=== PATIENT | female | born 1995 | race African-American/Black ===

== ENCOUNTER 2018-04-01 20:39 | Emergency (ER) | payer SELFPAY ==
[~2018-04-01] VITALS: Ht 162.6 cm; Wt 59.0 kg
[~2018-04-01 20:39] MED LIST: ORPH100T PO
[2018-04-01 20:55] VITALS: BP 120/80
[2018-04-01] MEDS ORDERED: ACYC800T PO (21:43)
--- NOTE | 2018-04-01 22:19 | PHYS DOC ---
Past Medical History Past Medical History: No Pertinent History Past Surgical History: Alcohol Use: None Drug Use: None Adult General Chief Complaint Chief Complaint: SEXUALLY TRANSMITTED DISEASE HPI HPI Patient is a 23 year old female presenting with a rash on her labia. Onset 2 days after recent sexual intercourse itchy mild pain no vag discharge no abdo pain no odor no fever Review of Systems Review of Systems Constitutional: Denies fever or chills [] Eyes: Denies change in visual acuity, redness, or eye pain [] Integument: Neurologic: Denies headache, focal weakness or sensory changes [] Endocrine: Denies polyuria or polydipsia [] All other systems were reviewed and found to be within normal limits, except as documented in this note. Allergies Allergies Allergies Coded Allergies Type Severity Reaction Last Updated Verified No Known Drug Allergies 03/05/18 No Physical Exam Physical Exam Constitutional: Well developed, well nourished, no acute distress, non-toxic appearance. [] HENT: Normocephalic, atraumatic, bilateral external ears normal, oropharynx moist, no oral exudates, nose normal. [] Eyes: PERRLA, EOMI, conjunctiva normal, no discharge. [] Neck: Normal range of motion, no tenderness, supple, no stridor. [] Pulmonary: Normal respiratory effort no increased work of breathing no obvious chest wall trauma Abdomen: , soft, no tenderness, no masses, no pulsatile masses. [] Skin: There are 2 small vesicular lesions on the left external labia no fluctuance no vaginal discharge is seen. Back: No tenderness, no CVA tenderness. [] Extremities: No tenderness, no cyanosis, no clubbing, ROM intact, no edema. [] Neurologic: Alert and oriented X 3, normal motor function, normal sensory function, no focal deficits noted. [] Psychologic: Affect normal, judgement normal, mood normal. [] Current Patient Data Vital Signs Vital Signs Date Time Temp Pulse Resp B/P (MAP) Pulse Ox O2 Delivery O2 Flow Rate FiO2 04/01/18 20:55 97.9 94 16 120/80 (93) 99 Room Air 97.9 Lab Values Laboratory Tests Test 04/01/18 21:37 POC Urine HCG, Qualitative Hcg negative (Negative) EKG EKG [] Radiology/Procedures Radiology/Procedures [] Course & Med Decision Making Course & Med Decision Making Pertinent Labs and Imaging studies reviewed. (See chart for details) []Probable herpes simplex early-onset area was swabbed patient knows we are starting presumptive treatment negative no other symptoms of cervicitis no vaginal discharge at this time. Dragon Disclaimer Dragon Disclaimer This electronic medical record was generated, in whole or in part, using a voice recognition dictation system. Departure Departure Impression: Primary Impression: Herpes simplex Disposition: 01 HOME, SELF-CARE Patient Instructions: Herpes Simplex Scripts Acyclovir (ACYCLOVIR) 800 Mg Tablet 1 TAB PO 5XDAY, #50 TAB Prov: CAMILLA JAMA MD 04/01/18 CAMILLA JAMA MD Apr 01, 2018 22:19
[2018-04-04 21:11] LABS: HERPES SIMPLEX TYPE 1 Negative (Negative); HERPES SIMPLEX TYPE 2 Negative (Negative)
== END 2018-04-01 22:41 | disposition home or self-care (01) ==
LOC: ER 20:39
DX: B00.1 Herpesviral vesicular dermatitis (principal)
CPT/HCPCS: 36415; 81025; 87529; 99283

== ENCOUNTER 2018-06-07 11:58 | Emergency (ER) | payer OTHER ==
[~2018-06-07] VITALS: Ht 162.6 cm; Wt 68.0 kg
[~2018-06-07 11:58] MED LIST changes: +ACYC800T PO
--- NOTE | 2018-06-07 14:11 | PHYS DOC ---
Past Medical History Past Medical History: No Pertinent History (CHEO HADDAD DO) Past Surgical History: (CHEO HADDAD DO) Alcohol Use: None Drug Use: None (CHEO HADDAD DO) Adult General Chief Complaint Chief Complaint: ABDOMINAL PAIN HPI HPI Patient is a 23 year old female who presented to ER today for evaluation of right lower abdominal pain. She described the pain as sharp, stabbing sensation. Patient denies any pelvic pain, no vaginal bleeding or discharge. She denies any fever. Patient had IUD placed 3-4 years ago. (HCEO HADDAD DO) Review of Systems Review of Systems Constitutional: Denies fever or chills [] Eyes: Denies change in visual acuity, redness, or eye pain [] HENT: Denies nasal congestion or sore throat [] Respiratory: Denies cough or shortness of breath [] Cardiovascular: No additional information not addressed in HPI [] GI: POSITIVE FOR abdominal pain, no nausea, vomiting, bloody stools or diarrhea [] : Denies dysuria or hematuria [] Musculoskeletal: Denies back pain or joint pain [] Integument: Denies rash or skin lesions [] Neurologic: Denies headache, focal weakness or sensory changes [] Endocrine: Denies polyuria or polydipsia [] All other systems were reviewed and found to be within normal limits, except as documented in this note. (CHEO HADDAD DO) Current Medications Current Medications Current Medications Medications (Trade) Dose Ordered Sig/Avinash Start Time Stop Time Status Last Admin Dose Admin Info (CONTRAST GIVEN -- Rx MONITORING) 1 each PRN DAILY PRN 06/07/18 15:15 06/09/18 15:14 Iohexol (Omnipaque 240 Mg/ml) 50 ml 1X ONCE 06/07/18 15:00 06/07/18 15:01 DC 06/07/18 15:00 50 ML Iohexol (Omnipaque 300 Mg/ml) 75 ml 1X ONCE 06/07/18 15:00 06/07/18 15:01 DC 06/07/18 15:00 75 ML Morphine Sulfate (Morphine Sulfate) 2 mg 1X ONCE 06/07/18 17:00 06/07/18 17:02 DC 06/07/18 17:25 2 MG (CAMILLA JAMA MD) Allergies Allergies Allergies Coded Allergies Type Severity Reaction Last Updated Verified No Known Drug Allergies 03/05/18 No (CAMILLA JAMA MD) Physical Exam Physical Exam Constitutional: Well developed, well nourished, no acute distress, non-toxic appearance. [] HENT: Normocephalic, atraumatic, bilateral external ears normal, oropharynx moist, no oral exudates, nose normal. [] Eyes: PERRLA, EOMI, conjunctiva normal, no discharge. [] Neck: Normal range of motion, no tenderness, supple, no stridor. [] Cardiovascular:Heart rate regular rhythm, no murmur [] Lungs & Thorax: Bilateral breath sounds clear to auscultation [] Abdomen: Bowel sounds normal, soft, RLQ tenderness TO PALPATION, no masses, no pulsatile masses. [] Skin: Warm, dry, no erythema, no rash. [] Back: No tenderness, no CVA tenderness. [] Extremities: No tenderness, no cyanosis, no clubbing, ROM intact, no edema. [] Neurologic: Alert and oriented X 3, normal motor function, normal sensory function, no focal deficits noted. [] Psychologic: Affect normal, judgement normal, mood normal. [] (CHEO HADDAD DO) Current Patient Data Vital Signs Vital Signs Date Time Temp Pulse Resp B/P (MAP) Pulse Ox O2 Delivery O2 Flow Rate FiO2 06/07/18 17:25 20 100 06/07/18 13:04 98.4 80 120/80 (93) Room Air 98.4 (CAMILLA JAMA MD) Lab Values Laboratory Tests Test 06/07/18 14:10 06/07/18 14:15 06/07/18 14:25 White Blood Count 11.6 x10^3/uL (4.0-11.0) H Red Blood Count 4.75 x10^6/uL (3.50-5.40) Hemoglobin 13.3 g/dL (12.0-15.5) Hematocrit 40.4 % (36.0-47.0) Mean Corpuscular Volume 85 fL (79-100) Mean Corpuscular Hemoglobin 28 pg (25-35) Mean Corpuscular Hemoglobin Concent 33 g/dL (31-37) Red Cell Distribution Width 16.0 % (11.5-14.5) H Platelet Count 237 x10^3/uL (140-400) Neutrophils (%) (Auto) 85 % (31-73) H Lymphocytes (%) (Auto) 11 % (24-48) L Monocytes (%) (Auto) 4 % (0-9) Eosinophils (%) (Auto) 0 % (0-3) Basophils (%) (Auto) 1 % (0-3) Neutrophils # (Auto) 9.8 x10^3uL (1.8-7.7) H Lymphocytes # (Auto) 1.3 x10^3/uL (1.0-4.8) Monocytes # (Auto) 0.4 x10^3/uL (0.0-1.1) Eosinophils # (Auto) 0.0 x10^3/uL (0.0-0.7) Basophils # (Auto) 0.1 x10^3/uL (0.0-0.2) Sodium Level 139 mmol/L (136-145) Potassium Level 3.9 mmol/L (3.5-5.1) Chloride Level 104 mmol/L (98-107) Carbon Dioxide Level 27 mmol/L (21-32) Anion Gap 8 (6-14) Blood Urea Nitrogen 9 mg/dL (7-20) Creatinine 0.9 mg/dL (0.6-1.0) Estimated GFR (Cockcroft-Gault) 95.6 BUN/Creatinine Ratio 10 (6-20) Glucose Level 85 mg/dL (70-99) Calcium Level 9.2 mg/dL (8.5-10.1) Total Bilirubin 0.4 mg/dL (0.2-1.0) Aspartate Amino Transferase (AST) 12 U/L (15-37) L Alanine Aminotransferase (ALT) 7 U/L (14-59) L Alkaline Phosphatase 65 U/L (46-116) Total Protein 7.6 g/dL (6.4-8.2) Albumin 3.8 g/dL (3.4-5.0) Albumin/Globulin Ratio 1.0 (1.0-1.7) Lipase 81 U/L (73-393) Urine Collection Type Unknown Urine Color Yellow Urine Clarity Clear Urine pH 6.0 Urine Specific [place] >=1.030 Urine Protein Negative mg/dL (NEG-TRACE) Urine Glucose (UA) Negative mg/dL (NEG) Urine Ketones (Stick) Trace mg/dL (NEG) Urine Blood Negative (NEG) Urine Nitrite Negative (NEG) Urine Bilirubin Small (NEG) Urine Urobilinogen Dipstick 1.0 mg/dL (0.2 mg/dL) Urine Leukocyte Esterase Small (NEG) Urine RBC 0 /HPF (0-2) Urine WBC 1-4 /HPF (0-4) Urine Squamous Epithelial Cells Many /LPF Urine Bacteria Moderate /HPF (0-FEW) Urine Mucus Marked /LPF POC Urine HCG, Qualitative Hcg negative (Negative) Laboratory Tests 06/07/18 14:10 Laboratory Tests 06/07/18 14:10 (CAMILLA JAMA MD) Lab Values Laboratory Tests Test 06/07/18 14:10 06/07/18 14:15 06/07/18 14:25 White Blood Count 11.6 x10^3/uL (4.0-11.0) H Red Blood Count 4.75 x10^6/uL (3.50-5.40) Hemoglobin 13.3 g/dL (12.0-15.5) Hematocrit 40.4 % (36.0-47.0) Mean Corpuscular Volume 85 fL (79-100) Mean Corpuscular Hemoglobin 28 pg (25-35) Mean Corpuscular Hemoglobin Concent 33 g/dL (31-37) Red Cell Distribution Width 16.0 % (11.5-14.5) H Platelet Count 237 x10^3/uL (140-400) Neutrophils (%) (Auto) 85 % (31-73) H Lymphocytes (%) (Auto) 11 % (24-48) L Monocytes (%) (Auto) 4 % (0-9) Eosinophils (%) (Auto) 0 % (0-3) Basophils (%) (Auto) 1 % (0-3) Neutrophils # (Auto) 9.8 x10^3uL (1.8-7.7) H Lymphocytes # (Auto) 1.3 x10^3/uL (1.0-4.8) Monocytes # (Auto) 0.4 x10^3/uL (0.0-1.1) Eosinophils # (Auto) 0.0 x10^3/uL (0.0-0.7) Basophils # (Auto) 0.1 x10^3/uL (0.0-0.2) Sodium Level 139 mmol/L (136-145) Potassium Level 3.9 mmol/L (3.5-5.1) Chloride Level 104 mmol/L (98-107) Carbon Dioxide Level 27 mmol/L (21-32) Anion Gap 8 (6-14) Blood Urea Nitrogen 9 mg/dL (7-20) Creatinine 0.9 mg/dL (0.6-1.0) Estimated GFR (Cockcroft-Gault) 95.6 BUN/Creatinine Ratio 10 (6-20) Glucose Level 85 mg/dL (70-99) Calcium Level 9.2 mg/dL (8.5-10.1) Total Bilirubin 0.4 mg/dL (0.2-1.0) Aspartate Amino Transferase (AST) 12 U/L (15-37) L Alanine Aminotransferase (ALT) 7 U/L (14-59) L Alkaline Phosphatase 65 U/L (46-116) Total Protein 7.6 g/dL (6.4-8.2) Albumin 3.8 g/dL (3.4-5.0) Albumin/Globulin Ratio 1.0 (1.0-1.7) Lipase 81 U/L (73-393) Urine Collection Type Unknown Urine Color Yellow Urine Clarity Clear Urine pH 6.0 Urine Specific [place] >=1.030 Urine Protein Negative mg/dL (NEG-TRACE) Urine Glucose (UA) Negative mg/dL (NEG) Urine Ketones (Stick) Trace mg/dL (NEG) Urine Blood Negative (NEG) Urine Nitrite Negative (NEG) Urine Bilirubin Small (NEG) Urine Urobilinogen Dipstick 1.0 mg/dL (0.2 mg/dL) Urine Leukocyte Esterase Small (NEG) Urine RBC 0 /HPF (0-2) Urine WBC 1-4 /HPF (0-4) Urine Squamous Epithelial Cells Many /LPF Urine Bacteria Moderate /HPF (0-FEW) Urine Mucus Marked /LPF POC Urine HCG, Qualitative Hcg negative (Negative) Laboratory Tests 06/07/18 14:10 Laboratory Tests 06/07/18 14:10 (CHEO HADDAD DO) EKG EKG [] (CHEO HADDAD DO) Radiology/Procedures Radiology/Procedures [][facility] [address] [place] [address] IMAGING REPORT Signed PATIENT: ANA PRESTON ACCOUNT: [id number] : 1995 LOCATION: ER AGE: 23 SEX: F EXAM STATUS: REG ER ORD. PHYSICIAN: CHEO HADDAD DO REASON: RLQ ABDOMINAL PAIN SINCE WAKING UP THIS MORNING. PROCEDURE: CT ABD PELV W/ORAL&IV CONTRAST CT STUDY OF THE ABDOMEN AND PELVIS WITH CONTRAST Clinical indications: Right lower quadrant abdominal pain since waking up this morning. TECHNIQUE: After IV infusion of 75 cc of Omnipaque 300, helical CT scanning of the abdomen and pelvis was performed. GI contrast was administered per mouth. PQRS compliance Statement One or more of the following individualized dose reduction techniques were utilized for this study: 1. Automated exposure control 2. Adjustment of the mA and/or kV according to patient size 3. Use of iterative reconstruction technique COMPARISON: None available. FINDINGS: The liver and spleen and pancreas and gallbladder are normal. No extrahepatic biliary ductal dilatation is seen. No adrenal mass is evident. Both kidneys are normal without hydronephrosis or hydroureter. Urinary bladder is nondistended. No focal aneurysmal dilatation of the abdominal aorta is seen. No bulky abdominal or pelvic lymphadenopathy is evident. There is a cyst of the right ovary measuring 3.9 cm. Intrauterine device is present and is malpositioned. It has migrated into the posterior wall of the uterus and is extends outside of the uterus near the serosal layer. There is a small amount of free fluid within the cul-de-sac. The appendix is not visualized but there are no secondary CT findings of appendicitis. No obstructive bowel pattern is evident. No free air is seen. No lung base consolidation is evident. No lytic process is seen. IMPRESSION: Abnormal position of IUD with migration through the posterior uterine wall and the T portion of the IUD is located outside the uterus along the serosal layer. There is a small amount of free fluid within the cul-de-sac. 3.9 cm right ovarian cyst. Electronically signed by: Leonor Corea MD (06/07/2018 4:24 PM) [facility] DICTATED and SIGNED BY: LEONOR COREA MD DATE: 06/07/18 1973 (CHEO HADDAD DO) Course & Med Decision Making Course & Med Decision Making Pertinent Labs and Imaging studies reviewed. (See chart for details) [] (CHEO HADDAD DO) Course & Med Decision Making s/o from [facility] noted u/s result norco for pain get f/u with ramp boss for iud removal no torsion on ultrasound. pt looks comfortable, given toradol (CAMILLA JAMA MD) Dragon Disclaimer Dragon Disclaimer This electronic medical record was generated, in whole or in part, using a voice recognition dictation system. (CHEO HADDAD DO) Departure Departure Impression: Primary Impression: Ovarian cyst, right Disposition: HOME, SELF-CARE Condition: STABLE Referrals: NO PCP (PCP) Scripts Hydrocodone/Apap 5-325 (NORCO 5-325 TABLET) 1 Each Tablet 1-2 EACH PO PRN Q6HRS PRN for PAIN, #15 as needed for pain Prov: CAMILLA JAMA MD 06/07/18 CHEO HADDAD DO Jun 07, 2018 14:11 CAMILLA JAMA MD Jun 07, 2018 18:12
[2018-06-07 14:20] LABS: BASO # 0.1 x10^3/uL (0.0-0.2); BASO % 1 % (0-3); EOS % 0 % (0-3); HEMATOCRIT 40.4 % (36.0-47.0); HEMOGLOBIN 13.3 g/dL (12.0-15.5); LYMPH # 1.3 x10^3/uL (1.0-4.8); LYMPH % 11 % (24-48); MEAN CORPUSCULAR HEMOGLOBIN 28 pg (25-35); MEAN CORPUSCULAR HGB CONC 33 g/dL (31-37); MEAN CORPUSCULAR VOLUME 85 fL (79-100); MONO # 0.4 x10^3/uL (0.0-1.1); MONO % 4 % (0-9); NEUT # 9.8 x10^3uL (1.8-7.7); NEUT % 85 % (31-73); PLATELET COUNT 237 x10^3/uL (140-400); RED BLOOD COUNT 4.75 x10^6/uL (3.50-5.40); WHITE BLOOD COUNT 11.6 x10^3/uL (4.0-11.0)
[2018-06-07 14:35] LABS: CALCIUM 9.2 mg/dL (8.5-10.1); CREATININE 0.9 mg/dL (0.6-1.0); GFR 95.6; POTASSIUM 3.9 mmol/L (3.5-5.1)
[2018-06-07 14:41] LABS: ALBUMIN 3.8 g/dL (3.4-5.0); TOTAL BILIRUBIN 0.4 mg/dL (0.2-1.0); TOTAL PROTEIN 7.6 g/dL (6.4-8.2)
[2018-06-07 14:43] LABS: BILIRUBIN,URINE SMALL (NEG); CLARITY,URINE CLEAR; COLOR,URINE YELLOW; NITRITE,URINE NEGATIVE (NEG); PROTEIN,URINE NEGATIVE (NEG-TRACE)
[2018-06-07] MEDS ORDERED: IOHEXOL 300 MG/ML 100ML VIAL. IV ONE (15:00)
[2018-06-07] MEDS ORDERED: IOHEXOL 240 MG/ML 50ML VIAL. PO ONE (15:00)
[2018-06-07] MEDS ORDERED: CONTRAST GIVEN. MC PRN (15:15)
[2018-06-07 15:27] LABS: BACTERIA,URINE MODERATE /HPF (0-FEW); RBC,URINE 0 /HPF (0-2); SQUAMOUS EPITHELIAL CELL,UR MANY /LPF
--- NOTE | 2018-06-07 16:27 | RAD ---
CT STUDY OF THE ABDOMEN AND PELVIS WITH CONTRAST Clinical indications: Right lower quadrant abdominal pain since waking up this morning. TECHNIQUE: After IV infusion of 75 cc of Omnipaque 300, helical CT scanning of the abdomen and pelvis was performed. GI contrast was administered per mouth. PQRS compliance Statement One or more of the following individualized dose reduction techniques were utilized for this study: 1. Automated exposure control 2. Adjustment of the mA and/or kV according to patient size 3. Use of iterative reconstruction technique COMPARISON: None available. FINDINGS: The liver and spleen and pancreas and gallbladder are normal. No extrahepatic biliary ductal dilatation is seen. No adrenal mass is evident. Both kidneys are normal without hydronephrosis or hydroureter. Urinary bladder is nondistended. No focal aneurysmal dilatation of the abdominal aorta is seen. No bulky abdominal or pelvic lymphadenopathy is evident. There is a cyst of the right ovary measuring 3.9 cm. Intrauterine device is present and is malpositioned. It has migrated into the posterior wall of the uterus and is extends outside of the uterus near the serosal layer. There is a small amount of free fluid within the cul-de-sac. The appendix is not visualized but there are no secondary CT findings of appendicitis. No obstructive bowel pattern is evident. No free air is seen. No lung base consolidation is evident. No lytic process is seen. IMPRESSION: Abnormal position of IUD with migration through the posterior uterine wall and the T portion of the IUD is located outside the uterus along the serosal layer. There is a small amount of free fluid within the cul-de-sac. 3.9 cm right ovarian cyst. Electronically signed by: Hermann Corea MD (06/07/2018 4:24 PM) [facility]
[2018-06-07] MEDS ORDERED: MORPHINE SULFATE 4 MG/ML VIAL. IV ONE (17:00)
--- NOTE | 2018-06-07 17:32 | RAD ---
Indication:RT SIDE PELVIC PAIN TECHNIQUE: Grayscale, color Doppler and spectral waveform images of the pelvis obtained. COMPARISON:None FINDINGS: The uterus is anteverted and measures 7.3 x 6.1 x 4.6 cm. The right ovary measures 5.0 x 4.6 x 3.7 cm and shows blood flow. There is a hypoechoic masslike lesion within the right ovary measuring 4.2 x 3.0 x 3.7 cm. Low-lying IUD seen. Endometrial stripe measures 7 mm in thickness and is within normal limits. The left ovary measures 1.8 x 3.6 x 1.7 cm with follicles and shows blood flow. No free pelvic fluid. IMPRESSION: 1. Low-lying cervical IUD. Clinically correlate with physical exam. 2. Complex right ovarian lesion likely hemorrhagic cyst. Differential diagnoses includes endometrioma or teratoma. Follow-up ultrasound in 8-12 weeks recommended. 3. Bilateral ovaries show evidence of blood flow. Electronically signed by: Douglas Ford DO (06/07/2018 5:29 PM) [facility]
[2018-06-07 18:00] VITALS: BP 117/60
[2018-06-07] MEDS ORDERED: HYDR-3164 PO (18:09)
[2018-06-07] MEDS ORDERED: KETOROLAC 15 MG/ML VIAL. IV ONE (18:15)
== END 2018-06-07 18:00 | disposition home or self-care (01) ==
LOC: ER 11:58
DX: N83.201 Unspecified ovarian cyst, right side (principal); Z98.890 Other specified postprocedural states
CPT/HCPCS: 36415; 74177; 76830; 76856; 80053; 81001; 81025; 83690; 85025; 87086; 96374; 99284; J2270; Q9966; Q9967

== ENCOUNTER → 2019-08-24 | Outpatient (CLI) | payer OTHER ==
[~2019-08-24] MED LIST changes: +HYDR-3164 PO
[2019-08-24 10:56] LABS: BASO # 0.1 x10^3/uL (0.0-0.2); BASO % 1 % (0-3); EOS % 0 % (0-3); HEMATOCRIT 39.8 % (36.0-47.0); HEMOGLOBIN 13.1 g/dL (12.0-15.5); LYMPH # 1.3 x10^3/uL (1.0-4.8); LYMPH % 9 % (24-48); MEAN CORPUSCULAR HEMOGLOBIN 27 pg (25-35); MEAN CORPUSCULAR HGB CONC 33 g/dL (31-37); MEAN CORPUSCULAR VOLUME 80 fL (79-100); MONO # 0.7 x10^3/uL (0.0-1.1); MONO % 5 % (0-9); NEUT # 11.8 x10^3/uL (1.8-7.7); NEUT % 86 % (31-73); PLATELET COUNT 285 x10^3/uL (140-400); RED BLOOD COUNT 4.95 x10^6/uL (3.50-5.40); RED CELL DISTRIBUTION WIDTH 17.7 % (11.5-14.5); WHITE BLOOD COUNT 13.7 x10^3/uL (4.0-11.0)
[2019-08-24 11:39] LABS: % BANDS 2 % (0-9); % LYMPHS 9 % (24-48); % MONOS 3 % (0-10); % SEGS 86 % (35-66); ANISOCYTOSIS SLIGHT; OVALOCYTES OCC; PLT ESTIMATE ADEQUATE (ADEQUATE)
== END ==
LOC: LAB 10:38
PROVIDERS: ATTEND Obstetrics & Gynecology
DX: Z32.01 Encounter for pregnancy test, result positive (principal); O34.219 Maternal care for unspecified type scar from previous cesarean delivery
CPT/HCPCS: 36415; 85007; 85025; 86592; 86703; 86762; 86850; 86900; 86901; 87340

== ENCOUNTER 2019-09-08 10:22 | Emergency (ER) | payer OTHER ==
[~2019-09-08] VITALS: Ht 162.6 cm; Wt 57.7 kg
[2019-09-08 11:29] LABS: BILIRUBIN,URINE NEGATIVE (NEG); CLARITY,URINE CLEAR; COLOR,URINE YELLOW; NITRITE,URINE NEGATIVE (NEG); PH,URINE 7.5 (<5.0-8.0); PROTEIN,URINE NEGATIVE (NEG-TRACE); UROBILINOGEN,URINE 0.2 mg/dL (0.2 mg/dL)
[2019-09-08 11:44] LABS: BACTERIA,URINE FEW /HPF (0-FEW); RBC,URINE RARE /HPF (0-2); SQUAMOUS EPITHELIAL CELL,UR MANY /LPF; WBC,URINE OCC /HPF (0-4)
[2019-09-08] MEDS ORDERED: ONDANSETRON PF 4 MG/2 ML VIAL. IVP ONE (12:00)
[2019-09-08] MEDS ORDERED: IV NORMAL SALINE 1000ML BAG 1,000 ML IV ONE (12:00)
[2019-09-08 13:00] VITALS: BP 131/63
--- NOTE | 2019-09-08 14:18 | PHYS DOC ---
Past Medical History Past Medical History: No Pertinent History Past Surgical History: Smoking Status: Never Smoker Alcohol Use: None Drug Use: None Adult General Chief Complaint Chief Complaint: NAUSEA/VOMITING/DIARRHA HPI HPI Patient is a 24 year old 8 weeks gestation female who presents with daily nausea and vomiting with persistent vomiting the past several days. Patient was evaluated for the same by her MANAGER [employer] yesterday and was prescribed Zofran. Patient has not filled her prescription and has not had any nausea medication since last night. Denies dizziness, lightheadedness, chest pain, palpitations, abdominal pain, hematemesis coffee-ground emesis melena. No vaginal bleeding. No fever chills or sweats. No other acute symptoms or complaints. [] Review of Systems Review of Systems Review of symptoms as per HPI. All other review of symptoms as per HPI. All other systems were reviewed and found to be within normal limits, except as documented in this note. Current Medications Current Medications Current Medications Medications (Trade) Dose Ordered Sig/Avinash Start Time Stop Time Status Last Admin Dose Admin Ondansetron HCl (Zofran) 4 mg 1X ONCE 09/08/19 12:00 09/08/19 12:02 DC 09/08/19 12:11 4 MG Sodium Chloride 1,000 ml @ 1,000 mls/hr 1X ONCE 09/08/19 12:00 09/08/19 12:59 DC 09/08/19 12:11 1,000 MLS/HR Allergies Allergies Allergies Coded Allergies Type Severity Reaction Last Updated Verified No Known Drug Allergies 03/05/18 No Physical Exam Physical Exam Constitutional: Well developed, well nourished, no acute distress, non-toxic appearance. [] HENT: Normocephalic, atraumatic, bilateral external ears normal, oropharynx mois, nose normal. [] Eyes: PERRLA, EOMI, conjunctiva normal, no discharge. [] Neck: Normal range of motion, no tenderness. [] Cardiovascular:Heart rate regular rhythm, no murmur [] Lungs & Thorax: Bilateral breath sounds clear to auscultation [] Abdomen: Bowel sounds normal, soft, no tenderness. [] Skin: Warm, dry, no erythema, no rash. [] Back: No tenderness, no CVA tenderness. [] Extremities: No tenderness, no edema. [] Neurologic: Alert and oriented X 3, normal motor function, normal sensory function, no focal deficits noted. [] Psychologic: Affect normal, judgement normal, mood normal. [] Current Patient Data Vital Signs Vital Signs Date Time Temp Pulse Resp B/P (MAP) Pulse Ox O2 Delivery O2 Flow Rate FiO2 09/08/19 13:00 86 18 131/63 (85) 100 Room Air 09/08/19 10:52 98.3 98.3 Lab Values Laboratory Tests Test 09/08/19 11:20 09/08/19 11:22 Urine Collection Type Unknown Urine Color Yellow Urine Clarity Clear Urine pH 7.5 (<5.0-8.0) Urine Specific [place] >=1.030 (1.000-1.030) Urine Protein Negative mg/dL (NEG-TRACE) Urine Glucose (UA) Negative mg/dL (NEG) Urine Ketones (Stick) 40 mg/dL (NEG) Urine Blood Negative (NEG) Urine Nitrite Negative (NEG) Urine Bilirubin Negative (NEG) Urine Urobilinogen Dipstick 0.2 mg/dL (0.2 mg/dL) Urine Leukocyte Esterase Small (NEG) Urine RBC Rare /HPF (0-2) Urine WBC Occ /HPF (0-4) Urine Squamous Epithelial Cells Many /LPF Urine Bacteria Few /HPF (0-FEW) Urine Mucus Marked /LPF POC Urine HCG, Qualitative Hcg positive (Negative) EKG EKG [] Radiology/Procedures Radiology/Procedures [] Course & Med Decision Making Course & Med Decision Making Pertinent Labs and Imaging studies reviewed. (See chart for details) [No emesis in the ED. Symptoms improved with treatment. Patient instructed to fill nausea medication upon returning home.] Dragon Disclaimer Dragon Disclaimer This electronic medical record was generated, in whole or in part, using a voice recognition dictation system. Departure Departure Impression: Primary Impression: Morning sickness Disposition: ADMITTED INPATIENT Condition: STABLE Patient Instructions: Morning Sickness, [id number] Additional Instructions: Please fill the prescriptions provided you by Dr. Lucero and follow-up with him as scheduled. Return to the ED if new or concerning symptoms. GRAEME POTTER DO September 08, 2019 14:18
== END 2019-09-08 13:22 | disposition home or self-care (01) ==
LOC: ER 10:22
DX: O21.9 Vomiting of pregnancy, unspecified (principal); R11.2 Nausea with vomiting, unspecified; Z98.890 Other specified postprocedural states; Z3A.08 8 weeks gestation of pregnancy
CPT/HCPCS: 81001; 81025; 87086; 96361; 96374; 99283; J2405; J7030

== ENCOUNTER 2019-09-29 09:08 | Emergency (ER) | payer OTHER ==
[~2019-09-29] VITALS: Ht 162.6 cm; Wt 57.7 kg
[2019-09-29 09:15] VITALS: BP 122/75
[2019-09-29 09:39] LABS: BILIRUBIN,URINE NEGATIVE (NEG); CLARITY,URINE TURBID; NITRITE,URINE NEGATIVE (NEG); PH,URINE 8.5 (<5.0-8.0); PROTEIN,URINE NEGATIVE (NEG-TRACE)
[2019-09-29 10:16] LABS: BACTERIA,URINE MOD /HPF (0-FEW); COLOR,URINE STRAW; RBC,URINE 0 /HPF (0-2); SQUAMOUS EPITHELIAL CELL,UR MOD /LPF
[2019-09-29 10:17] LABS: AMORPHOUS SEDIMENT,UR PRESENT /HPF
[2019-09-29] MEDS ORDERED: ONDANSETRON PF 4 MG/2 ML VIAL. IVP ONE (12:00)
[2019-09-29] MEDS ORDERED: metroNIDAZOLE 500 MG TABLET PO ONE (12:00)
[2019-09-29] MEDS ORDERED: cefTRIAXone IM 250 MG VIAL IM ONE (12:00)
[2019-09-29] MEDS ORDERED: AZITHROMYCIN 250 MG TABLET. PO ONE (12:00)
[2019-09-29] MEDS ORDERED: NITR100C62 PO (12:02)
--- NOTE | 2019-09-29 12:22 | PHYS DOC ---
Past Medical History Past Medical History: No Pertinent History Past Surgical History: Smoking Status: Never Smoker Alcohol Use: None Drug Use: None General Adult EDM: Chief Complaint: PAIN ON URINATION HPI: HPI: Patient is a 24 year old female who presents with dysuria, vaginal discharge, vaginal irritation. Patient states that she was diagnosed with trichomonas at her first OB appointment but they told her that she cannot be treated until she was in her second trimester. She is unsure what the rest of her labs showed. She is having a great deal of vaginal irritation and discharge. She states she is about 12 weeks gestation at this time. She denies any vaginal bleeding, abdominal cramping, fever, flank pain, nausea, vomiting. Review of Systems: Review of Systems: General: Denies fever, chills, sweats, fatigue Eyes: Denies drainage, blurred vision HENT: Denies rhinorrhea, sore throat Respiratory: Denies cough, shortness of breath, wheezing Cardiac: Denies edema, palpitations, chest pain GI: Denies abdominal pain, N/V reports vaginal discharge, dysuria, vaginal irritation MSK: Denies back pain, neck pain Skin: Denies rash, jaundice Neuro: Denies headache, dizziness Psychiatric: Denies SI/HI Heart Score: Risk Factors: Risk Factors: DM, Current or recent (<one month) smoker, HTN, HLP, family history of CAD, obesity. Risk Scores: Score 0 - 3: 2.5% MACE over next 6 weeks - Discharge Home Score 4 - 6: 20.3% MACE over next 6 weeks - Admit for Clinical Observation Score 7 - 10: 72.7% MACE over next 6 weeks - Early Invasive Strategies Current Medications: Current Medications Medications (Trade) Dose Ordered Sig/[facility] Start Time Stop Time Status Last Admin Dose Admin Azithromycin (Zithromax) 1,000 mg 1X ONCE 09/29/19 12:00 09/29/19 12:02 DC Ceftriaxone Sodium (Rocephin Im) 250 mg 1X ONCE 09/29/19 12:00 09/29/19 12:02 DC Metronidazole (Flagyl) 2,000 mg 1X ONCE 09/29/19 12:00 09/29/19 12:02 DC Ondansetron HCl (Zofran) 4 mg 1X ONCE 09/29/19 12:00 09/29/19 12:02 DC Allergies: Allergies: Allergies Coded Allergies Type Severity Reaction Last Updated Verified No Known Drug Allergies 03/05/18 No Physical Exam: PE: Constitutional: Well developed, well nourished, Cooperative, NAD, non-toxic appearing HEENT: Normocephalic, atraumatic, oropharynx moist, EOMI, PERRL, no drainage from eyes, normal conjunctiva Neck: Supple, normal range of motion, no stridor Cardiovascular: RRR, 2+ radial pulses bilaterally, no edema Respiratory: CTA bilaterally, no respiratory distress, no wheezing/crackles Abdomen: Soft, nontender, nondistended, no masses Skin: Warm, dry, intact Extremities: No obvious deformities Neurologic: Alert and Oriented x3, motor and sensory function grossly normal, no focal deficits Psychologic: Normal affect, normal judgment, normal mood. No SI/HI Current Patient Data: Labs: Laboratory Tests Test 09/29/19 09:15 09/29/19 09:24 Urine Color Straw Urine Clarity Turbid Urine pH 8.5 (<5.0-8.0) Urine Specific [place] 1.025 (1.000-1.030) Urine Protein Negative mg/dL (NEG-TRACE) Urine Glucose (UA) Negative mg/dL (NEG) Urine Ketones (Stick) 40 mg/dL (NEG) Urine Blood Negative (NEG) Urine Nitrite Negative (NEG) Urine Bilirubin Negative (NEG) Urine Urobilinogen Dipstick 1.0 mg/dL (0.2 mg/dL) Urine Leukocyte Esterase Moderate (NEG) Urine RBC 0 /HPF (0-2) Urine WBC 11-20 /HPF (0-4) Urine Squamous Epithelial Cells Mod /LPF Urine Amorphous Sediment Present /HPF Urine Bacteria Mod /HPF (0-FEW) Urine Mucus Slight /LPF POC Urine HCG, Qualitative Hcg positive (Negative) Microbiology 09/29/19 Wet Prep - Final, Complete Vital Signs: Vital Signs Date Time Temp Pulse Resp B/P (MAP) Pulse Ox O2 Delivery O2 Flow Rate FiO2 09/29/19 09:15 97.9 88 18 122/75 (91) Room Air 97.9 EKG: EKG: [] Radiology/Procedures: Radiology/Procedures: [] Course & Med Decision Making: Course & Med Decision Making Pertinent Labs and Imaging studies reviewed. (See chart for details) Patient is a 24-year-old female who presents to the emergency room with vaginal irritation and discharge. Patient has known trichomonas. She is symptomatic at this time. It is unclear whether or not she has gonorrhea or chlamydia. Wet mount and GC chlamydia will be done. UA does show white blood cells. This could be due to trichomonas, or could also be due to a UTI patient does have some dysuria. She will be treated for UTI. While there are some case studies that recommend not giving Flagyl to women or women in their first trimester, it is also recommended that you treat trichomonas if it is symptomatic as it can lead to poor outcomes. Weighing the risks and benefits at this time we will treat her with Flagyl, Rocephin, azithromycin. I have discussed with her that she will need to have her partner tested and treated. She is not having any complications at this time. Patient's test results and vitals while in the ED were fully reviewed and discussed with the patient. Patient is stable and at this time does not need admission to the hospital. We have discussed strict return precautions and the importance of following up with their Primary Care Physician. Patient stated understanding and was given an opportunity to ask any questions. Dragon Disclaimer: Dragon Disclaimer: This electronic medical record was generated, in whole or in part, using a voice recognition dictation system. Departure Departure Impression: Primary Impression: UTI (urinary tract infection) during Additional Impression: Cervicitis Disposition: 01 HOME, SELF-CARE Condition: GOOD Patient Instructions: Urinary Tract Infection, [id number], Trichomoniasis Scripts Nitrofurantoin Monohyd/M-Cryst (MACROBID 100 MG CAPSULE) 100 Mg Capsule 1 CAP PO BID for 7 Days, #14 CAP 0 Refills Prov: JOVANI DE SANTIAGO MD 09/29/19 Justicifation of Admission Dx: Justifications for Admission: Justification of Admission Dx: No JOVANI DE SANTIAGO MD Sep 29, 2019 12:22
[2019-09-29] MEDS ORDERED: ONDANSETRON ODT 4 MG TAB.RAPDIS. PO ONE (12:30)
[2019-09-30 18:09] LABS: GC PROBE Negative (Negative)
== END 2019-09-29 12:25 | disposition home or self-care (01) ==
LOC: ER 09:08
DX: O23.41 Unspecified infection of urinary tract in pregnancy, first trimester (principal); A59.09 Other urogenital trichomoniasis; R30.0 Dysuria; Z98.890 Other specified postprocedural states; Z3A.12 12 weeks gestation of pregnancy
CPT/HCPCS: 81001; 81025; 87491; 87591; 96372; 99284; J0696; Q0111

== ENCOUNTER → 2019-11-23 | Outpatient (CLI) | payer OTHER ==
[~2019-11-23] MED LIST changes: +NITR100C62 PO; +ONDA4TAB12 PO
--- NOTE | 2019-11-23 09:45 | KCIC ---
PREG MORE THAN OR EQ TO 14 WKS History: Size and dates Comparison: None. Findings: Multiple sonographic images of the uterus are submitted. There is a single live intrauterine fetus. There is cephalic presentation. Cervix measured 4.6 cm in length. Midline nose and lips were visualized. There is midline cord insertion. 2 kidneys were visualized. stomach was visualized. There is four-chamber view of heart. 2 upper and lower extremities were visualized. No obvious abnormality is demonstrated of the visualized spine. There is demonstrable three-vessel cord. There was visualization of bladder. Subjectively amniotic fluid volume is within normal limits. There is fundal placenta. 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 Biometry data are as follows: Biparietal diameter 4.57 cm corresponds with 19 weeks 6 days, 48th percentile. Head circumference 16.67 cm corresponds with 19 weeks 2 days, 20th percentile Abdominal circumference 14.2 cm corresponds with 19 weeks 4 days, 34th percentile Femur length 3.12 cm corresponds with 19 weeks 5 days, 36 percentile HC/AC ratio within normal limits 1.17 Adjusted ultrasound age 19 weeks 4 days corresponds with 04/14/2020 LMP age 19 weeks 6 days corresponds with 04/12/2020 Estimated weight 302 grams+/- 45grams heart [id number] beats per minute Estimated MAYA 11.3 cm Impression: 1. There is a single viable intrauterine with cephalic presentation. Adjusted ultrasound age is 19 weeks 4 days with estimated delivery date of 04/14/2020. Electronically signed by: Sixto Foley MD (11/23/2019 9:42 AM) [id number]
== END | disposition home or self-care (01) ==
LOC: KCIC US 08:18
PROVIDERS: ATTEND Obstetrics & Gynecology
DX: O26.842 Uterine size-date discrepancy, second trimester (principal); Z3A.19 19 weeks gestation of pregnancy
CPT/HCPCS: 76805

== ENCOUNTER 2019-11-24 13:32 | Emergency (ER) | payer OTHER ==
[~2019-11-24] VITALS: Ht 162.6 cm; Wt 61.4 kg
[~2019-11-24 13:32] MED LIST changes: -ONDA4TAB12 PO
[2019-11-24 13:55] VITALS: BP 128/61
[2019-11-24 14:24] LABS: BILIRUBIN,URINE NEGATIVE (NEG); CLARITY,URINE CLEAR; COLOR,URINE YELLOW; NITRITE,URINE NEGATIVE (NEG); PH,URINE 7.5 (<5.0-8.0); PROTEIN,URINE NEGATIVE (NEG-TRACE); UROBILINOGEN,URINE 0.2 mg/dL (0.2 mg/dL)
[2019-11-24 14:36] LABS: BACTERIA,URINE FEW /HPF (0-FEW); RBC,URINE 0 /HPF (0-2); SQUAMOUS EPITHELIAL CELL,UR MOD /LPF; WBC,URINE RARE /HPF (0-4)
--- NOTE | 2019-11-24 15:24 | PHYS DOC ---
Past Medical History Past Medical History: No Pertinent History Past Surgical History: Smoking Status: Never Smoker Alcohol Use: None Drug Use: None General Adult EDM: Chief Complaint: PAIN ON URINATION HPI: HPI: Patient is a 24 year old female with no significant medical history 2 para 1 currently 20 weeks presenting to the ED today requesting to be tested for UTI and STDs. Patient states she had rough sex with a male partner couple days ago and developed some discomfort in the vaginal region. Patient denies any bleeding. She states she is concerned for STDs and would like to be tested but not treated. Denies any abdominal pain. Denies any back pain. Review of Systems: Review of Systems: Constitutional: Denies fever or chills. [] Eyes: Denies change in visual acuity. [] HENT: Denies nasal congestion or sore throat. [] Respiratory: Denies cough or shortness of breath. [] Cardiovascular: Denies chest pain or edema. [] GI: Denies abdominal pain, nausea, vomiting, bloody stools or diarrhea. [] : Denies dysuria. [] Musculoskeletal: Denies back pain or joint pain. [] Integument: Denies rash. [] Neurologic: Denies headache, focal weakness or sensory changes. [] Endocrine: Denies polyuria or polydipsia. [] Lymphatic: Denies swollen glands. [] Psychiatric: Denies depression or anxiety. [] Heart Score: Risk Factors: Risk Factors: DM, Current or recent (<one month) smoker, HTN, HLP, family history of CAD, obesity. Risk Scores: Score 0 - 3: 2.5% MACE over next 6 weeks - Discharge Home Score 4 - 6: 20.3% MACE over next 6 weeks - Admit for Clinical Observation Score 7 - 10: 72.7% MACE over next 6 weeks - Early Invasive Strategies Allergies: Allergies: Allergies Coded Allergies Type Severity Reaction Last Updated Verified No Known Drug Allergies 03/05/18 No Physical Exam: PE: Constitutional: Well developed, well nourished, no acute distress, non-toxic appearance. [] HENT: Normocephalic, atraumatic, bilateral external ears normal, oropharynx moist, no oral exudates, nose normal. [] Eyes: PERRLA, EOMI, conjunctiva normal, no discharge. [] Neck: Normal range of motion, no tenderness, supple, no stridor. [] Cardiovascular:Heart rate regular rhythm, no murmur [] Lungs & Thorax: Bilateral breath sounds clear to auscultation [] Abdomen: Bowel sounds normal, soft, no tenderness, no masses, no pulsatile masses. [] Skin: Warm, dry, no erythema, no rash. [] Back: No tenderness, no CVA tenderness. [] Extremities: No tenderness, no cyanosis, no clubbing, ROM intact, no edema. [] Neurologic: Alert and oriented X 3, normal motor function, normal sensory function, no focal deficits noted. [] Psychologic: Affect normal, judgement normal, mood normal. [] Current Patient Data: Labs: Laboratory Tests Test 11/24/19 13:34 11/24/19 13:50 Urine Collection Type Void Urine Color Yellow Urine Clarity Clear Urine pH 7.5 (<5.0-8.0) Urine Specific [place] 1.010 (1.000-1.030) Urine Protein Negative mg/dL (NEG-TRACE) Urine Glucose (UA) Negative mg/dL (NEG) Urine Ketones (Stick) Negative mg/dL (NEG) Urine Blood Negative (NEG) Urine Nitrite Negative (NEG) Urine Bilirubin Negative (NEG) Urine Urobilinogen Dipstick 0.2 mg/dL (0.2 mg/dL) Urine Leukocyte Esterase Trace (NEG) Urine RBC 0 /HPF (0-2) Urine WBC Rare /HPF (0-4) Urine Squamous Epithelial Cells Mod /LPF Urine Bacteria Few /HPF (0-FEW) POC Urine HCG, Qualitative Hcg positive (Negative) Vital Signs: Vital Signs Date Time Temp Pulse Resp B/P (MAP) Pulse Ox O2 Delivery O2 Flow Rate FiO2 11/24/19 13:55 99.8 88 20 128/61 (83) 100 Room Air 99.8 EKG: EKG: [] Radiology/Procedures: Radiology/Procedures: [] Course & Med Decision Making: Course & Med Decision Making Pertinent Labs and Imaging studies reviewed. (See chart for details) This is a 24-year-old female patient currently 20 weeks presenting to the ED today requesting to be tested for STD and UTI. Urine analysis was neg ative. 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 Will be called with STD results if positive. Nirmala Disclaimer: Nirmala Disclaimer: This electronic medical record was generated, in whole or in part, using a voice recognition dictation system. Departure Departure Impression: Primary Impression: Dysuria Additional Impression: Concern about STD in female without diagnosis Disposition: 01 HOME, SELF-CARE Condition: STABLE Referrals: RAJEEV GARCIA Jr, MD (PCP) follow up as soon as you can Patient Instructions: Dysuria-Brief Additional Instructions: You were tested for sexually transmitted diseases. We will call you with the results if positive. Your urine analysis is negative for infection. Follow-up with your IT NETWORK ADMINISTRATOR as soon as possible. Justicifation of Admission Dx: Justifications for Admission: Justification of Admission Dx: N/A MALCOM MANZANARES APRN Nov 24, 2019 15:24
== END 2019-11-24 15:30 | disposition home or self-care (01) ==
LOC: ER 13:32
DX: O26.892 Other specified pregnancy related conditions, second trimester (principal); R30.0 Dysuria; Z98.890 Other specified postprocedural states; Z20.2 Contact with and (suspected) exposure to infections with a predominantly sexual mode of transmission; Z3A.20 20 weeks gestation of pregnancy
CPT/HCPCS: 81001; 81025; 87086; 87491; 87591; 99283

== ENCOUNTER 2019-11-27 07:50 | Emergency (ER) | payer OTHER ==
[~2019-11-27] VITALS: Ht 162.6 cm; Wt 63.0 kg
[2019-11-27 08:00] VITALS: BP 130/59
[2019-11-27] MEDS ORDERED: ONDA4TAB12 PO (08:08)
--- NOTE | 2019-11-27 08:08 | PHYS DOC ---
Past Medical History Past Medical History: No Pertinent History Past Surgical History: Smoking Status: Never Smoker Alcohol Use: None Drug Use: None General Adult EDM: Chief Complaint: NAUSEA/VOMITING/DIARRHA HPI: HPI: Patient is a 24-year-old female who is approximately 5 months who states she ate some Chipotle last night and this morning starting about 3 AM she had nausea and vomiting. She has some upper abdominal cramping. She denies any vaginal bleeding or discharge. She is had no fever chills or sweats. She does state that she has had a little bit of blood in her emesis this morning. [] Review of Systems: Review of Systems: Constitutional: Denies fever or chills. [] Eyes: Denies change in visual acuity. [] HENT: Denies nasal congestion or sore throat. [] Respiratory: Denies cough or shortness of breath. [] Cardiovascular: Denies chest pain or edema. [] GI: Per HPI. [] : Denies dysuria. [] Musculoskeletal: Denies back pain or joint pain. [] Integument: Denies rash. [] Neurologic: Denies headache, focal weakness or sensory changes. [] Endocrine: Denies polyuria or polydipsia. [] Lymphatic: Denies swollen glands. [] Psychiatric: Denies depression or anxiety. [] Heart Score: Risk Factors: Risk Factors: DM, Current or recent (<one month) smoker, HTN, HLP, family history of CAD, obesity. Risk Scores: Score 0 - 3: 2.5% MACE over next 6 weeks - Discharge Home Score 4 - 6: 20.3% MACE over next 6 weeks - Admit for Clinical Observation Score 7 - 10: 72.7% MACE over next 6 weeks - Early Invasive Strategies Allergies: Allergies: Allergies Coded Allergies Type Severity Reaction Last Updated Verified No Known Drug Allergies 03/05/18 No Physical Exam: PE: Constitutional: Well developed, well nourished, no acute distress, non-toxic appearance. [] HENT: Normocephalic, atraumatic, bilateral external ears normal, oropharynx moist, no oral exudates, nose normal. [] Eyes: PERRLA, EOMI, conjunctiva normal, no discharge. [] Neck: Normal range of motion, no tenderness, supple, no stridor. [] Cardiovascular:Heart rate regular rhythm, no murmur [] Lungs & Thorax: Bilateral breath sounds clear to auscultation [] Abdomen: Bowel sounds normal, soft, no tenderness, no masses, no pulsatile masses. [] Skin: Warm, dry, no erythema, no rash. [] Back: No tenderness, no CVA tenderness. [] Extremities: No tenderness, no cyanosis, no clubbing, ROM intact, no edema. [] Neurologic: Alert and oriented X 3, normal motor function, normal sensory function, no focal deficits noted. [] Psychologic: Affect normal, judgement normal, mood normal. [] EKG: EKG: [] Radiology/Procedures: Radiology/Procedures: [] Course & Med Decision Making: Course & Med Decision Making Pertinent Labs and Imaging studies reviewed. (See chart for details) [ED course: Evaluation reveals a 24-year-old female who is in absolutely no distress. She was given Zofran during her stay in the department and I will provide her with a prescription for Zofran to take at home. I told her to drink clear liquids today. She is safe for discharge home.] Dragon Disclaimer: Dragon Disclaimer: This electronic medical record was generated, in whole or in part, using a voice recognition dictation system. Departure Departure Impression: Primary Impression: Nausea and vomiting Qualified Codes: R11.2 - Nausea with vomiting, unspecified Disposition: 01 HOME, SELF-CARE Condition: STABLE Referrals: RAJEEV GARCIA Jr, MD (PCP) Patient Instructions: Nausea and Vomiting Additional Instructions: Drink a clear liquid diet throughout the day today. Return to the emergency de partment with any new or concerning symptoms Scripts Ondansetron (ONDANSETRON ODT) 4 Mg Tab.rapdis 1 TAB PO PRN Q6-8HRS for VOMITING, #16 TAB Prov: ELROY GOMEZ DO 11/27/19 Justicifation of Admission Dx: Justifications for Admission: Justification of Admission Dx: N/A ELROY GOMEZ DO Nov 27, 2019 08:08
[2019-11-27] MEDS ORDERED: ONDANSETRON ODT 4 MG TAB.RAPDIS. PO ONE (08:15)
== END 2019-11-27 08:40 | disposition home or self-care (01) ==
LOC: ER 07:50
DX: O21.9 Vomiting of pregnancy, unspecified (principal); R10.10 Upper abdominal pain, unspecified; Z98.890 Other specified postprocedural states; Z3A.00 Weeks of gestation of pregnancy not specified
CPT/HCPCS: 99283

== ENCOUNTER 2019-11-29 16:07 | Emergency (ER) | payer OTHER ==
[~2019-11-29] VITALS: Ht 162.6 cm; Wt 63.0 kg
[~2019-11-29 16:07] MED LIST changes: +ONDA4TAB12 PO
--- NOTE | 2019-11-29 16:29 | PHYS DOC ---
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 States she had a water with her that she was drinking. Patient states that she became dizzy and lightheaded and passed out and hit her forehead. I asked her if she landed on her belly she says I do not think so. 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 Patient states that she just feels very lightheaded. She denies headache, nausea, vomiting, chest pain, diarrhea, fever, cough, vision changes, numbness or tingling, abdominal pain, vaginal bleeding. Review of Systems: Review of Systems: Constitutional: Denies fever or chills. [] Eyes: Denies change in visual acuity. [] HENT: Denies nasal congestion or sore throat. [] Respiratory: Denies cough or shortness of breath. [] Cardiovascular: Denies chest pain or edema. [] GI: Denies abdominal pain, nausea, vomiting, bloody stools or diarrhea. [] : Denies dysuria. [] Musculoskeletal: Denies back pain or joint pain. [] Integument: Denies rash. [] Neurologic: Syncope, Dizziness, Denies headache, focal weakness or sensory changes. [] Endocrine: Denies polyuria or polydipsia. [] Lymphatic: Denies swollen glands. [] Psychiatric: Denies depression or anxiety. [] Heart Score: Risk Factors: Risk Factors: DM, Current or recent (<one month) smoker, HTN, HLP, family history of CAD, obesity. Risk Scores: Score 0 - 3: 2.5% MACE over next 6 weeks - Discharge Home Score 4 - 6: 20.3% MACE over next 6 weeks - Admit for Clinical Observation Score 7 - 10: 72.7% MACE over next 6 weeks - Early Invasive Strategies Allergies: Allergies: Allergies Coded Allergies Type Severity Reaction Last Updated Verified No Known Drug Allergies 03/05/18 No Physical Exam: PE: Constitutional: Well developed, well nourished, no acute distress, non-toxic appearance. [] HENT: Normocephalic, atraumatic, bilateral external ears normal, oropharynx moist, no oral exudates, nose normal. [] Eyes: PERRLA, EOMI, conjunctiva normal, no discharge. [] Neck: Normal range of motion, no tenderness, supple, no stridor. [] Cardiovascular:Heart rate regular rhythm, no murmur [] Lungs & Thorax: Bilateral breath sounds clear to auscultation [] Abdomen: Bowel sounds normal, soft, no tenderness, no masses, no pulsatile masses. [] Skin: Warm, dry, no erythema, no rash. [] Back: No tenderness, no CVA tenderness. [] Extremities: No tenderness, no cyanosis, no clubbing, ROM intact, no edema. [] Neurologic: Alert and oriented X 3, normal motor function, normal sensory function, no focal deficits noted. [] Psychologic: Affect normal, judgement normal, mood normal. Normal Physical Exam[] EKG: EK and read by Dr Quarles as NSR and no STEMI[] Radiology/Procedures: Radiology/Procedures: [] Course & Med Decision Making: Course & Med Decision Making Pertinent Labs and Imaging studies reviewed. (See chart for details) See HPI. Alert and oriented x4. PERRLA. No bruising or bumps or laceration or abrasion to the patient's body. Patient skull is atraumatic. Abdomen is nontender. Speaks in full clear sentences. Skin pink warm and dry. Vital signs within normal limits. EKG shows normal sinus rhythm. No extremity edema. Patient is medically cleared. She received 1L of NS. She is positive for MJ. Patient states she is feeling much better. heart tones 195. She states she feels the baby kicking as normal. Patient states she is no longer dizzy or light headed. Patient will now go to OB floor to have the baby monitored. [] Dragon Disclaimer: Dragon Disclaimer: This electronic medical record was generated, in whole or in part, using a voice recognition dictation system. Departure Departure Impression: Primary Impression: Syncope Qualified Codes: R55 - Syncope and collapse Disposition: 01 HOME, SELF-CARE Condition: STABLE Referrals: RAJEEV GARCIA Jr, MD (PCP) Patient Instructions: Syncope, [id number] Additional Instructions: Follow up with OB as soon as possible. Make sure you are drinking plenty of water. Stay out of the heat if at all possible. Justicifation of Admission Dx: Justifications for Admission: Justification of Admission Dx: N/A MACO ENCINAS APRN Nov 29, 2019 16:29
[2019-11-29] MEDS ORDERED: IV NORMAL SALINE 1000ML BAG 1,000 ML IV ONE (16:30)
[2019-11-29 16:56] LABS: BASO % 0 % (0-3); EOS % 0 % (0-3); HEMATOCRIT 28.3 % (36.0-47.0); HEMOGLOBIN 9.6 g/dL (12.0-15.5); LYMPH # 1.6 x10^3/uL (1.0-4.8); LYMPH % 17 % (24-48); MEAN CORPUSCULAR HEMOGLOBIN 27 pg (25-35); MEAN CORPUSCULAR HGB CONC 34 g/dL (31-37); MEAN CORPUSCULAR VOLUME 79 fL (79-100); MONO # 0.6 x10^3/uL (0.0-1.1); MONO % 7 % (0-9); NEUT # 6.9 x10^3/uL (1.8-7.7); NEUT % 75 % (31-73); PLATELET COUNT 202 x10^3/uL (140-400); RED BLOOD COUNT 3.61 x10^6/uL (3.50-5.40); RED CELL DISTRIBUTION WIDTH 15.9 % (11.5-14.5); WHITE BLOOD COUNT 9.2 x10^3/uL (4.0-11.0)
[2019-11-29 17:23] LABS: CALCIUM 8.2 mg/dL (8.5-10.1); CREATININE 0.8 mg/dL (0.6-1.0); GFR 108.5; POTASSIUM 3.1 mmol/L (3.5-5.1)
[2019-11-29 17:29] LABS: ALBUMIN 2.6 g/dL (3.4-5.0); ALBUMIN/GLOBULIN RATIO 0.7 (1.0-1.7); TOTAL BILIRUBIN 0.2 mg/dL (0.2-1.0); TOTAL PROTEIN 6.3 g/dL (6.4-8.2)
[2019-11-29 18:02] LABS: BILIRUBIN,URINE NEGATIVE (NEG); CLARITY,URINE CLEAR; COLOR,URINE YELLOW; NITRITE,URINE NEGATIVE (NEG); PH,URINE 6.5 (<5.0-8.0); PROTEIN,URINE NEGATIVE (NEG-TRACE); UROBILINOGEN,URINE 0.2 mg/dL (0.2 mg/dL)
[2019-11-29 18:07] LABS: BARBITURATES NEG (NEG); BENZODIAZEPINES NEG (NEG); CANNABINOIDS POS (NEG); COCAINE NEG (NEG); METHADONE NEG (NEG); OPIATES NEG (NEG); PHENCYCLIDINE NEG (NEG)
[2019-11-29 18:08] LABS: SQUAMOUS EPITHELIAL CELL,UR MANY /LPF
[2019-11-29 18:09] LABS: BACTERIA,URINE MANY /HPF (0-FEW)
[2019-11-29 18:10] LABS: RBC,URINE 0 /HPF (0-2)
[2019-11-29 18:12] LABS: AMPHETAMINE/METHAMPHETAMINE NEG (NEG)
[2019-11-29 18:24] VITALS: BP 108/56
--- NOTE | 2019-12-02 09:15 | EKG ---
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
== END 2019-11-29 18:34 | disposition home or self-care (01) ==
LOC: ER 16:07
DX: O26.892 Other specified pregnancy related conditions, second trimester (principal); R55 Syncope and collapse
CPT/HCPCS: 36415; 80053; 80307; 81001; 84484; 84702; 85025; 87086; 96360; 99285; J7030; 93005

== ENCOUNTER 2020-07-19 08:04 | Emergency (ER) | payer OTHER ==
[~2020-07-19] VITALS: Ht 160 cm; Wt 50.0 kg
[~2020-07-19 08:04] MED LIST changes: +CLOT45CR9 VG; +DOCU-153 PO; +FERR325T14 PO; +IBUP-1060 PO; +METR-34 PO; +OXYC1TAB15 PO
[2020-07-19 08:29] VITALS: BP 138/71
[2020-07-19 08:42] LABS: BILIRUBIN,URINE NEGATIVE (NEG); CLARITY,URINE CLOUDY; COLOR,URINE YELLOW; NITRITE,URINE NEGATIVE (NEG); PROTEIN,URINE 100 mg/dL (NEG-TRACE); UROBILINOGEN,URINE 0.2 mg/dL (0.2 mg/dL)
--- NOTE | 2020-07-19 08:54 | ED.ADGEN ---
Past Medical History Past Medical History: No Pertinent History Past Surgical History: Smoking Status: Never Smoker Alcohol Use: None Drug Use: None General Adult EDM: Chief Complaint: SKIN PROBLEM HPI: HPI: Patient is a 25 year old female coming in for irritation to her vagina. Patient states that started about 2 weeks ago she has some irritation and itching after using a "off brand pad". Patient states she has seen her TRACK LEADER about 10 days ago and he stated he thought it was just for some irritation. Patient states given mild but put some A&D on it 3 days ago and has had worsening irritation and itching. Denies any vaginal discharge. Last menstrual period 2 weeks ago. Says she has some pain at the site with movement and touch. She is 3 weeks not breast-feeding. Review of Systems: Review of Systems: All other systems within normal limits except for as noted in the HPI Allergies: Allergies: Allergies Coded Allergies Type Severity Reaction Last Updated Verified No Known Drug Allergies 03/05/18 No Physical Exam: PE: Constitutional: Well developed, well nourished, no acute distress, non-toxic appearance. [] HENT: Normocephalic, atraumatic, bilateral external ears normal, nose normal. [] Eyes: PERRLA, conjunctiva normal, no discharge. [] Neck: No rigidity, supple, no stridor. [] Cardiovascular: Regular rate and rhythm, brisk cap refill [] Lungs & Thorax: Non labored symmetric respirations, no tachypnea or respiratory distress [] Abdomen: Soft, nondistended. Skin: Warm, dry, no erythema, no rash. : About 1 cm area of erythema and edema fluctuance to the right labia minora near the posterior fourchette no ulcerations or lesions. No drainage no vaginal discharge. [] Back: Unremarkable Extremities: No deformities, range of motion grossly intact, no lower extremity edema [] Neurologic: Alert and oriented X 3, no focal deficits noted. [] Psychologic: Affect normal, judgement normal, mood normal. [] Current Patient Data: Labs: Laboratory Tests Test 07/19/20 08:05 07/19/20 08:11 Urine Collection Type Unknown Urine Color Yellow Urine Clarity Cloudy Urine pH 6.0 (<5.0-8.0) Urine Specific Mineral 1.020 (1.000-1.030) Urine Protein 100 mg/dL (NEG-TRACE) Urine Glucose (UA) Negative mg/dL (NEG) Urine Ketones (Stick) Negative mg/dL (NEG) Urine Blood Moderate (NEG) Urine Nitrite Negative (NEG) Urine Bilirubin Negative (NEG) Urine Urobilinogen Dipstick 0.2 mg/dL (0.2 mg/dL) Urine Leukocyte Esterase Large (NEG) Urine RBC 6-10 /HPF (0-2) Urine WBC Tntc /HPF (0-4) Urine Squamous Epithelial Cells Mod /LPF Urine Bacteria Many /HPF (0-FEW) POC Urine HCG, Qualitative Hcg negative (Negative) Microbiology 07/19/20 Wet Prep - Final, Complete Vital Signs: Vital Signs Date Time Temp Pulse Resp B/P (MAP) Pulse Ox O2 Delivery O2 Flow Rate FiO2 07/19/20 08:29 97.8 84 16 138/71 (93) 100 Room Air 97.8 EKG: EKG: [] Heart Score: C/O Chest Pain: No Risk Factors: Risk Factors: DM, Current or recent (<one month) smoker, HTN, HLP, family history of CAD, obesity. Risk Scores: Score 0 - 3: 2.5% MACE over next 6 weeks - Discharge Home Score 4 - 6: 20.3% MACE over next 6 weeks - Admit for Clinical Observation Score 7 - 10: 72.7% MACE over next 6 weeks - Early Invasive Strategies Radiology/Procedures: Radiology/Procedures: [] Impression: RUN DATE: 07/19/20 [facility] *LIVE* PAGE 1 RUN TIME: 0842 Specimen Inquiry PATIENT: ANA PRESTON ACCT: [id number] LOC: ER U: [id number] AGE/SX: 25/F ROOM: RE07/19/[address]: ODILIA RIOS MD : 1995 BED: DIS: STATUS: REG ER TLOC: SPEC #: [id number] ANTHONY: 07/19/20 STATUS: COMP REQ #: [id number] RECD: 07/19/20 [facility] DR: ODILIA RIOS MD SOURCE: VAGINAL ENTR: 07/19/[address] ORDERED: WET PREP COMMENTS: Has specimen been collected/obtained? Y -------- ---- Procedure Result WET PREP Final YEAST PRESENT TRICHOMONAS NONE SEEN CLUE CELLS NONE SEEN SQUAMOUS EPS MANY Course & Med Decision Making: Course & Med Decision Making Pertinent Labs and Imaging studies reviewed. (See chart for details) [] Nirmala Disclaimer: Nirmala Disclaimer: This electronic medical record was generated, in whole or in part, using a voice recognition dictation system. Departure Departure Impression: Primary Impression: UTI (urinary tract infection) Additional Impression: Vaginitis Disposition: 01 DC HOME SELF CARE/HOMELESS Condition: STABLE Referrals: RAJEEV GARCIA Jr, MD Patient Instructions: Vaginitis, Ugef-ub-Nygi Scripts Fluconazole (DIFLUCAN) 150 Mg Tablet 1 TAB PO ONCE for antifungal for 1 Day, #1 TAB 1 Refill Take after course of antibiotics Prov: ODILIA RIOS MD 07/19/20 Mometasone Furoate (MOMETASONE FUROATE) 45 Gm Cream..g. 1 DAVID TP BID for steroid for 5 Days, #15 GM 1 Refill Prov: ODILIA RIOS MD 07/19/20 Cephalexin (CEPHALEXIN) 500 Mg Tablet 1 TAB PO BID for antibiotic for 7 Days, #14 TAB Prov: ODILIA RIOS MD 07/19/20 Problem Qualifiers ODILIA RIOS MD Jul 19, 2020 08:54
[2020-07-19 09:09] LABS: BACTERIA,URINE MANY /HPF (0-FEW); WBC,URINE TNTC /HPF (0-4)
[2020-07-19] MEDS ORDERED: CEPH500T PO (09:28)
[2020-07-19] MEDS ORDERED: FLUC150T PO (09:28)
[2020-07-19] MEDS ORDERED: MOME45CR3 TP (09:28)
[2020-07-20 14:18] LABS: GC PROBE Negative (Negative)
== END 2020-07-19 10:05 | disposition home or self-care (01) ==
LOC: ER 08:04
DX: N76.0 Acute vaginitis (principal); B96.89 Other specified bacterial agents as the cause of diseases classified elsewhere; N39.0 Urinary tract infection, site not specified; L53.9 Erythematous condition, unspecified; Z98.890 Other specified postprocedural states
CPT/HCPCS: 81001; 81025; 87086; 87491; 87591; 99283; Q0111

== ENCOUNTER 2020-09-15 07:42 | Emergency (ER) | payer OTHER ==
[~2020-09-15] VITALS: Ht 162.6 cm; Wt 59.0 kg
[~2020-09-15 07:42] MED LIST changes: -ACYC800T PO; +ACYC800T88 PO; +CEPH500T PO; +FLUC150T PO; +MOME45CR3 TP
[2020-09-15 08:01] VITALS: BP 130/68
[2020-09-15 08:11] LABS: BILIRUBIN,URINE NEGATIVE (NEG); CLARITY,URINE CLOUDY; COLOR,URINE YELLOW; NITRITE,URINE NEGATIVE (NEG); PH,URINE 7.5 (<5.0-8.0); PROTEIN,URINE NEGATIVE (NEG-TRACE); UROBILINOGEN,URINE 0.2 mg/dL (0.2 mg/dL)
--- NOTE | 2020-09-15 08:23 | PHYS DOC ---
Past Medical History Past Medical History: No Pertinent History Past Surgical History: Smoking Status: Never Smoker Alcohol Use: None Drug Use: None General Adult EDM: Chief Complaint: VAGINAL PROBLEM HPI: HPI: 25 yo F (LMP 08/31) presents to the ed with c/o increased white, clumpy vaginal discharge with external itching/irritation and swelling, states these sxs started 3 days ago after swimming in a swimming pool. Reports h/o similar symptoms that she was seen in this emergency department before prior-was told she was allergic to topical cream (per emr-was vagisil). Reports no vaginal bleeding, dysuria, hematuria, flank pain or dyspareunia. No new sexual partners/encounters, is sexually active with baby bert. Is not concerned for STIs. PSH- 2 c/s. Patient was treated for a yeast infection UTI on July 19 (urine cx was pansensitive). Review of Systems: Review of Systems: Constitutional: Denies fever or chills. [] Eyes: Denies change in visual acuity. [] HENT: Denies nasal congestion or sore throat. [] Respiratory: Denies cough or shortness of breath. [] Cardiovascular: Denies chest pain or edema. [] GI: Denies abdominal pain, nausea, vomiting, : Denies dysuriapr vaginal bleeding Musculoskeletal: Denies back pain or joint pain. [] Integument: Denies blistering lesions or ulcers Neurologic: Denies headache, focal weakness or sensory changes. [] Endocrine: Denies polyuria or polydipsia. [] Lymphatic: Denies swollen glands. [] Psychiatric: Denies depression or anxiety. [] Heart Score: C/O Chest Pain: No Risk Factors: Risk Factors: DM, Current or recent (<one month) smoker, HTN, HLP, family history of CAD, obesity. Risk Scores: Score 0 - 3: 2.5% MACE over next 6 weeks - Discharge Home Score 4 - 6: 20.3% MACE over next 6 weeks - Admit for Clinical Observation Score 7 - 10: 72.7% MACE over next 6 weeks - Early Invasive Strategies Allergies: Allergies: Allergies Coded Allergies Type Severity Reaction Last Updated Verified No Known Drug Allergies 03/05/18 No Physical Exam: PE: Constitutional: Well developed, well nourished, no acute distress, non-toxic a ppearance. HENT: Normocephalic, atraumatic, Eyes: EOMI, conjunctiva normal, no discharge. Neck: Normal range of motion, supple, Cardiovascular: S1/2 present, regular rhythm Lungs & Thorax: Speaking in full sentences, bilateral equal chest rise, no tac hypnea or increased work of breathing Abdomen: soft, no tenderness, Skin: Warm, dry, no erythema, no rash. [] Extremities: No tenderness, no cyanosis, no lower extremity edema Neurologic: Alert and oriented X 3, normal motor function, normal sensory fun ction, no focal deficits noted. [] Psychologic: Affect normal, judgement normal, mood normal. [] Pelvic: Chaperoned by RN, external genitalia w/no ulcers/bleeding or lesion - bl vulva slightly enlarged/edematous w/no increased warmth or rash, no vaginal bleeding, normal nonmalodorous white/clumpy discharge, cervical os closed, no cervical erythema, no CMT or adnexal tenderness, tolerated exam well Current Patient Data: Labs: Laboratory Tests Test 09/15/20 07:53 POC Urine HCG, Qualitative Hcg negative (Negative) Vital Signs: Vital Signs Date Time Temp Pulse Resp B/P (MAP) Pulse Ox O2 Delivery O2 Flow Rate FiO2 09/15/20 08:01 98.5 81 18 130/68 (88) 97 Room Air 98.5 EKG: EKG: [] Radiology/Procedures: Radiology/Procedures: [] Course & Med Decision Making: Course & Med Decision Making Pertinent Labs and Imaging studies reviewed. (See chart for details) U/A concerning for urinary tract infection in the setting of yeast infection, wet prep with multiple ailin that was suggestive of BV although there were no clue cells present. Pt HD stable, afebrile and well appearing. Will prescribe probiotic, defecating and Keflex. Patient to follow-up with primary care physician within the next 3 days if symptoms should persist consider adding Flagyl and repeating Diflucan. Patient reported she gave a good callback number regarding GC results. Will discharge home with strict ED return precautions were given for worsening lower abdominal or back pain, purulent vaginal drainage, vaginal bleeding, fever, nausea or vomiting or dehydration. Encouraged urgent outpatient follow-up with PMD and SEAFOOD AND SERVICE MEAT MANAGER defer definitive management. Life-threatening processes were considered but are low suspicion at this time, given history, physical exam and ED workup. Pt was educated on all prescription medications and adverse effects. All patient's questions were answered and pt was stable at time of discharge. Life/limb-threatening differential includes but is not limited to, ectopic preg la nena, septic , sepsis/infection (endometritis, sti/pid, cystitis, pyelonephritis, Tacho's gangrene or necrotizing fasciitis, abscess), ovarian torsion, ruptured hemorrhagic ovarian cyst, endometriosis, ureterolithiasis, thrombophlebitis, hemorrhage/DIC, organ prolapse, abdominal aortic aneurysm, mesenteric ischemia, neoplasm, bowel obstruction or surgical abdomen. I spoken with the patient and her caregivers. I explained the patient's condition, diagnoses and treatment plan based on the information available to me at this time. I have answered the patient and her caregiver's questions and addressed any concerns. The patient and her caregivers have a good understanding of patient's diagnosis, condition and treatment plan as can be expected at this point. Vital signs have been stable. Patient's condition is stable and appropriate for discharge from the emergency department. Patient will pursue further outpatient evaluation with primary care physician or other designated or consulting physician as outlined in the discharge instructions. The patient and/or caregivers are agreeable to this plan of care and follow-up instructions have been explained in detail. The patient and/or caregivers have received these instructions in written form and have expressed an understanding of the discharge instructions. The patient and/or caregivers are aware that any significant change of condition or worsening of symptoms should prompt immediate return to this or the closest emergency department or call to 911. Nirmala Disclaimer: Nirmala Disclaimer: This electronic medical record was generated, in whole or in part, using a voice recognition dictation system. Departure Departure Impression: Primary Impression: Yeast infection Additional Impression: UTI (urinary tract infection) Disposition: HOME / SELF CARE / HOMELESS Condition: STABLE Referrals: NO PCP (PCP) followup with pcp in 3 days for re-evaluation or FOLLOW UP WITH FAMILY MEDICINE: [address], [address] [place] [address] Patient Instructions: Candidal Vulvovaginitis, [id number], Urinary Tract Infection Additional Instructions: FOLLOW UP WITH SEAFOOD AND SERVICE MEAT MANAGER: For definitive management [facility] [address], [address] [place] [address] EMERGENCY DEPARTMENT GENERAL DISCHARGE INSTRUCTIONS Thank you for coming to [facility] Emergency Department (ED) today and trusting us with you care. We trust that you had a positive experience in our Emergency Department. If you wish to speak to the department management, you may call the Director at [phone]. YOUR FOLLOW UP INSTRUCTIONS ARE FOLLOWS: 1. Do you have a private Doctor? If you do not have a private doctor, please ask for a resource list of physicians or clinics that may be able to assist you with follow up care. 2. The Emergency Physicain has interpreted your x-rays. The X-Ray specialist will also review them. If there is a change in the findings, you will be notified in 48 hours when at all possible. 3. A lab test or culture has been done, your results will be reviewed and you will be notified if you need a change in treatment. ADDITIONAL INSTRUCTIONS AND INFORMATION: 1. Your care today has been supervised by a physician who is specially trained in emergency care. Many problems require more than one evaluation for a complete diagnosis and treatment. We recommend that you schedule your follow up appointment as recommended to ensure complete treatment of you illness or injury. If you are unable to obtain follow up care and continue to have a problem, or if your condition worsens, we recommend that you return to the ED. 2. We are not able to safely determine your condition over the phone nor are we able to give sound medical advice over the phone. For these safety reasons, if you call for medical advice we will ask you to come to the ED for further evaluation. 3. If you have any questions regarding these discharge instructions please call the ED at [phone]. SAFETY INFORMATION: In the interest of safety, wellness, and injury prevention; we encourage you to wear your sealbelt, if you smoke; quite smoking, and we encourage family to use a protective helmet for bicycling and other sporting events that present an increased risk for head injury. IF YOUR SYMPTOMS WORSEN OR NEW SYMPTOMS DEVELOP, OR YOU HAVE CONCERNS ABOUT YOUR CONDITION; OR IF YOUR CONDITION WORSENS WHILE YOU ARE WAITING FOR YOUR FOLLOW UP APPOINTMENT; EITHER CONTACT YOUR PRIMARY CARE DOCTOR, THE PHYSICIAN WHOSE NAME AND NUMBER YOU WERE GIVEN, OR RETURN TO THE ED IMMEDIATELY. Scripts Lactobacillus Acidophilus (Probiotic Acidophilus) 1 Each Tablet 1 TAB PO DAILY for 30 Days, #30 TAB 0 Refills Prov: FABI SOTO DO 09/15/20 Cephalexin (CEPHALEXIN) 500 Mg Capsule 1 CAP PO QID for 10 Days, #40 CAP Prov: FABI SOTO DO 09/15/20 Fluconazole (FLUCONAZOLE) 100 Mg Tablet 1.5 TAB PO ONCE, #1.5 TAB 0 Refills Prov: FABI SOTO DO 09/15/20 FABI SOTO DO Sep 15, 2020 08:23
[2020-09-15 08:24] LABS: WBC,URINE >40 /HPF (0-4)
[2020-09-15 08:25] LABS: YEAST,URINE PRESENT /HPF
[2020-09-15 08:31] LABS: BACTERIA,URINE MODERATE /HPF (0-FEW)
[2020-09-15] MEDS ORDERED: CEPH500C PO (09:27)
[2020-09-15] MEDS ORDERED: FLUC100T4 PO (09:27)
[2020-09-15] MEDS ORDERED: LACT1TAB24 PO (09:30)
[2020-09-17 13:29] LABS: GC PROBE Negative (Negative)
== END 2020-09-15 10:00 | disposition home or self-care (01) ==
LOC: ER 07:42
DX: B37.89 Other sites of candidiasis (principal); N39.0 Urinary tract infection, site not specified
CPT/HCPCS: 81001; 81025; 87086; 87491; 87591; 99284; Q0111

== ENCOUNTER 2020-10-03 09:16 | Emergency (ER) | payer OTHER ==
[~2020-10-03] VITALS: Ht 162.6 cm; Wt 55.1 kg
[~2020-10-03 09:16] MED LIST changes: +CEPH500C PO; +FLUC100T4 PO; +LACT1TAB24 PO
[2020-10-03 09:35] VITALS: BP 122/76
[2020-10-03 10:31] LABS: BILIRUBIN,URINE NEGATIVE (NEG); CLARITY,URINE CLEAR; COLOR,URINE YELLOW; NITRITE,URINE NEGATIVE (NEG); PH,URINE 7.5 (<5.0-8.0); PROTEIN,URINE NEGATIVE (NEG-TRACE)
[2020-10-03 10:34] LABS: U PREG PATIENT NEGATIVE (NEG)
--- NOTE | 2020-10-03 10:44 | PHYS DOC ---
Past Medical History Past Medical History: No Pertinent History Past Surgical History: Smoking Status: Never Smoker Alcohol Use: None Drug Use: None General Adult EDM: Chief Complaint: VAGINAL PROBLEM HPI: HPI: Patient is a 25 year old female who presents to the ED today complaining of vaginal discharge and irritation for 2 days. Denies any concerns for STDs, denies any chance she is . Review of Systems: Review of Systems: Constitutional: Denies fever or chills. [] GI: Denies abdominal pain, nausea, vomiting, bloody stools or diarrhea. [] Female : Reports vaginal discharge : Denies dysuria. [] Musculoskeletal: Denies back pain or joint pain. [] Integument: Denies rash. [] Neurologic: Denies headache, focal weakness or sensory changes. [] Psychiatric: Denies depression or anxiety. [] Heart Score: C/O Chest Pain: N/A Risk Factors: Risk Factors: DM, Current or recent (<one month) smoker, HTN, HLP, family history of CAD, obesity. Risk Scores: Score 0 - 3: 2.5% MACE over next 6 weeks - Discharge Home Score 4 - 6: 20.3% MACE over next 6 weeks - Admit for Clinical Observation Score 7 - 10: 72.7% MACE over next 6 weeks - Early Invasive Strategies Allergies: Allergies: Allergies Coded Allergies Type Severity Reaction Last Updated Verified pramoxine Allergy Intermediate 09/15/20 Yes Physical Exam: PE: Constitutional: Well developed, well nourished, no acute distress, non-toxic appearance. [] Abdomen: Bowel sounds normal, soft, no tenderness, no masses, no pulsatile masses. [] Pelvic exam Take mild amount of white discharge in the vaginal vault, no CMT, no adnexal tenderness. Labia minora appears swollen. Skin: Warm, dry, no erythema, no rash. [] Back: No tenderness, no CVA tenderness. [] Extremities: No tenderness, no cyanosis, no clubbing, ROM intact, no edema. [] Neurologic: Alert and oriented X 3, normal motor function, normal sensory function, no focal deficits noted. [] Psychologic: Affect normal, judgement normal, mood normal. [] Current Patient Data: Labs: Laboratory Tests Test 10/03/20 09:28 Urine Test Negative (NEG) Vital Signs: Vital Signs Date Time Temp Pulse Resp B/P (MAP) Pulse Ox O2 Delivery O2 Flow Rate FiO2 10/03/20 09:35 98.6 89 18 122/76 (91) 99 Room Air 98.6 EKG: EKG: [] Radiology/Procedures: Radiology/Procedures: [] Course & Med Decision Making: Course & Med Decision Making Pertinent Labs and Imaging studies reviewed. (See chart for details) This is a 25-year-old female patient presenting to the ED today with vaginal discharge and irritation that began 2 days ago. Negative urine hCG, positive for UTI, bacterial vaginosis and yeast infection. Discharged with cephalexin, bacterial vaginosis and fluconazole. Dragon Disclaimer: KirkeWeb Disclaimer: This electronic medical record was generated, in whole or in part, using a voice recognition dictation system. Departure Departure Impression: Primary Impression: BV (bacterial vaginosis) Additional Impressions: UTI (urinary tract infection) Qualified Codes: N39.0 - Urinary tract infection, site not specified Vaginal candidiasis Disposition: HOME / SELF CARE / HOMELESS Condition: STABLE Referrals: UNKNOWN PCP NAME (PCP) follow up with your doctor in 1-2 weeks Patient Instructions: Bacterial Vaginosis, [id number], Candidal Vulvovaginitis, [id number], Urinary Tract Infection Additional Instructions: You have urinary tract infection, bacterial vaginosis and a yeast infection. Take the prescribed medicines until completed. Follow-up with your doctor in 1 to 2 weeks. Keep your vaginal area clean and dry Scripts Cephalexin (CEPHALEXIN) 500 Mg Tablet 1 TAB PO BID, #14 TAB Prov: MALCOM MANZANARES APRN 10/03/20 Metronidazole (FLAGYL) 500 Mg Tablet 1 TAB PO BID, #14 TAB Prov: MALCOM MANZANARES POLY OPERATOR 10/03/20 Fluconazole (DIFLUCAN) 150 Mg Tablet 1 TAB PO ONCE, #1 TAB 1 Refill Take 1 tablet today and repeat in 7 days Prov: MALCOM MANZANARES APRN 10/03/20 MALCOM MANZANARES APRN Oct 03, 2020 10:43
[2020-10-03 10:51] LABS: RBC,URINE OCC /HPF (0-2)
[2020-10-03 10:52] LABS: BACTERIA,URINE FEW /HPF (0-FEW); YEAST,URINE PRESENT /HPF
[2020-10-03] MEDS ORDERED: METR500T PO (11:17)
[2020-10-03] MEDS ORDERED: CEPH500T PO (11:17)
[2020-10-03] MEDS ORDERED: FLUC150T PO (11:17)
[2020-10-04 16:11] LABS: GC PROBE Negative (Negative)
== END 2020-10-03 11:29 | disposition home or self-care (01) ==
LOC: ER 09:16
DX: N76.0 Acute vaginitis (principal); B96.89 Other specified bacterial agents as the cause of diseases classified elsewhere; N39.0 Urinary tract infection, site not specified; B37.3 Candidiasis of vulva and vagina; Z88.8 Allergy status to other drugs, medicaments and biological substances
CPT/HCPCS: 81001; 81025; 87086; 87491; 87591; 99284; Q0111